=== PATIENT | female | born 1935 | race Caucasian/White ===

== ENCOUNTER 2023-10-30 07:28 | Outpatient (RCR) | payer MEDICARE, OTHER, SELFPAY ==
--- NOTE | 2023-10-30 11:07 | PC.NURSE ---
1042: Pt. to [facility] via w/c accompanied by daughter. Pt. with portable O2 intact. Assisted to side of bed. Instructed to remove pants and panties for procedure, pt. compliant. Assisted to supine position. Informed pt. of what to expect, denies questions. Using sterile technique, pt. straight cath'd for mod. amount clear, yellow urine. Destiny care provided. Pt. tolerated without c/o. Given privacy to dress. 1100: Pt. d/c'd via w/c to home with daughter.
[2023-10-30 11:31] LABS: Bilirubin Urine NEGATIVE (NEGATIVE); Blood Urine NEGATIVE (NEGATIVE); Clarity Urine CLEAR (CLEAR); Color Urine LT. YELLOW (YELLOW); Glucose Urine UA NEGATIVE (NEGATIVE); Ketones Urine NEGATIVE (NEGATIVE); Leukocyte Esterase Urine NEGATIVE (NEGATIVE); Nitrite Urine NEGATIVE (NEGATIVE); Protein Urine NEGATIVE (NEG/TRACE); Urobilinogen Urine 0.2 EU/dL (0.2-1.0)
[2023-10-30 11:41] LABS: Urine Microscopic Indicated NO
== END 2023-10-30 14:46 | disposition home or self-care (01) ==
LOC: INF 07:28
PROVIDERS: PCP Family Medicine; Visit Provider Personal Emergency Response Attendant
DX: N39.0 Urinary tract infection, site not specified (principal)
CPT/HCPCS: 51701; 81003